=== PATIENT | male | born 1970 | race Caucasian/White ===

== ENCOUNTER 2016-09-10 23:45 | Emergency (ER) | payer OTHER ==
[~2016-09-10] VITALS: Ht 182.9 cm; Wt 122.5 kg
[~2016-09-10 23:45] MED LIST: PENICILLIN-VK500 MG PO; PERCOCET 325 MG1 TA2 PO; TRAMADOL50 MG PO
[2016-09-11] MEDS ORDERED: VENTOLIN HFA18 GM INH (00:03)
[2016-09-11 00:26] LABS: HEMATOCRIT 36.1 % (42-52); MEAN CORPUSCULAR HGB 29.9 PG (27.0-31.0); MEAN CORPUSCULAR HGB CONC 35.4 G/DL (33.0-37.0); MEAN CORPUSCULAR VOLUME 84.7 FL (80.0-94.0); MEAN PLATELET VOLUME 9.8 FL (7.4-10.4); PLATELET COUNT 212 /CUMM (130-400); RBC DISTRIBUTION WIDTH 13.6 % (11.5-14.5); RED BLOOD CELL CT 4.26 /CUMM (4.70-6.10)
--- NOTE | 2016-09-11 00:57 | RADIOLOGY REPORT ---
EXAMINATION: XR PORTABLE CHEST CLINICAL INFORMATION: Chest pain COMPARISON: None TECHNIQUE: Portable frontal view of the chest was obtained. FINDINGS: The lungs are hypoinflated and suboptimally evaluated. No definite consolidation is seen. No evidence of pneumothorax or significant pleural effusion. The cardiomediastinal silhouette is prominent though likely accentuated by low lung volumes. No acute osseous findings are seen. IMPRESSION: Low lung volumes without definite acute findings.
--- NOTE | 2016-09-11 02:15 | ED INFLUENZA/URI COMPLAINT ---
See Addendum History of Present Illness General Chief Complaint: Chest Pain Stated Complaint: "PER PT BADY PAIN, SOB, CP, DIZZY" Source: patient, family, old records Exam Limitations: no limitations Vital Signs & Intake/Output Vital Signs & Intake/Output Vital Signs Date Time Temp Pulse Resp B/P B/P Pulse O2 O2 Flow FiO2 Mean Ox Delivery Rate 09/11 0354 98.6 100 20 106/62 96 Room Air 09/11 0226 97.6 110 18 108/52 96 Room Air 09/11 0131 101.2 09/11 0127 101.2 113 19 119/63 95 Room Air 09/11 0003 95 Room Air 09/10 2359 101.8 115 19 133/91 94 Room Air Room Air ED Intake and Output 09/11 0000 09/10 1200 Intake Total Output Total Balance Patient 270 lb Weight Allergies Coded Allergies: NO KNOWN ALLERGIES (11/18/10) Reconcile Medications Albuterol Sulfate (Ventolin Hfa) 90 MCG HFA.AER.AD 2 PUF INH Q4-6 PRN PRN ALLERGIC WHEEZING (Reported) Amoxicillin/Potassium Clav (Augmentin 875-125 Tablet) 875 MG-125 MG TABLET 1 TAB PO BID bronchitis OXYCODONE HCL/ACETAMINOPHEN (Percocet 5-325 MG Tablet) 325 MG/5 MG TAB 1-2 TAB PO Q4-6 PRN PRN SEVERE PAIN Oxycodone HCl/Acetaminophen (Percocet 5-325 MG Tablet) 5 MG-325 MG TABLET 1 TAB PO 4 TIMES/DAY PRN severe pain Penicillin V Potassium (Penicillin-Vk) 500 MG TAB 1 PO DENTAL ABCESS ( Reported) Prednisone 20 MG TABLET 1 TAB PO BID asthma TRAMADOL HCL (Tramadol) 50 MG TABLET 1-2 TAB PO Q6P PRN MODERATE PAIN Triage Note: 46yo MALE TORM 4 W/CO DIFF BREATHING, BODY ACHES, CP ALL DAY TODAY. Triage Nurses Notes Reviewed? yes Onset: Evening Duration: hour(s):, constant, continues in ED Timing: recent history Severity: severe Prior Episodes/Possible Cause: illness exposure No Modifying Factors: none Associated Symptoms: cough, muscle aches, shortness of breath, wheezing HPI: 1 day prior to admission patient felt weak. 12 hours prior to admission complained of nonproductive cough shortness of breath with wheezing chest tightness body aches and chills. He took Motrin. He denies nausea vomiting diarrhea abdominal pain dysuria rash bleeding headache. Past History Travel History Traveled to [place] past 21 day No Medical History Any Pertinent Medical History? see below for history Respiratory: asthma Surgical History Surgical History: non-contributory Psychosocial History What is your primary language [place] Tobacco Use: Never used Family History Hx Contributory? No Review of Systems Review of Systems Constitutional: Reports: see HPI, chills, malaise. EENTM: Reports: no symptoms. Respiratory: Reports: see HPI, cough, short of breath, wheezing. Cardiovascular: Reports: see HPI, chest pain. GI: Reports: no symptoms. Genitourinary: Reports: no symptoms. Musculoskeletal: Reports: see HPI, joint pain, muscle pain. Skin: Reports: no symptoms. Neurological/Psychological: Reports: no symptoms. Hematologic/Endocrine: Reports: no symptoms. Immunologic/Allergic: Reports: no symptoms. All Other Systems: Reviewed and Negative Physical Exam Physical Exam General Appearance: well developed/nourished, alert, awake, anxious, moderate distress, obese Head: atraumatic, normal appearance Eyes: Bilateral: normal appearance, PERRL, EOMI. Ears, Nose, Throat: normal ENT inspection, moist mucous membrane Neck: normal inspection, supple, full range of motion, trachea midline, no midline tenderness Respiratory: chest non-tender, decreased breath sounds, wheezing, respiratory distress Cardiovascular: regular rate/rhythm, normal peripheral pulses, tachycardia, norml femoral pulses equa Peripheral Pulses: 4+ carotid (R), 4+ carotid (L) Gastrointestinal: normal bowel sounds, soft, non-tender, no organomegaly Back: normal inspection, normal range of motion Extremities: normal inspection, normal capillary refill, normal range of motion, no edema Neurologic/Psych: no motor/sensory deficits, awake, alert, oriented x 3, normal gait, normal mood/affect, 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 Skin: intact, normal color, warm/dry Lymphatic: no anterior cervical kanu Core Measures Severe Sepsis Present: No Septic Shock Present: No Progress Differential Diagnosis: influenza, pneumonia, pharyngitis, sinusitis Plan of Care: Orders Procedure Date/time Status Add-on Test (ER Only) 09/12 227 Active RAPID VIRAL INFLUENZA A 06/18 0129 Complete URINALYSIS 06/18 0129 Complete LACTIC ACID 09/12 7 Complete BLOOD CULTURE 09/11 6 Active TROPONIN LEVEL 09/11 6 Complete COMPREHENSIVE METABOLIC PANEL 09/11 6 Complete CBC WITHOUT DIFFERENTIAL 09/11 6 Complete B-TYPE NATRIURETIC PEP (BNP) 09/11 6 Complete EKG 09/10 2347 Active Current Medications Sig/Jaden Start time Last Medication Dose Stop Time Status Admin Ampicillin Sodium/ 3,000 MG ONCE ONE 09/11 329 UNVr 09/11 Sulbactam Sodium 09/11 358 0330 (Unasyn) Sodium Chloride 100 ML (Normal Saline 0.9%) Sodium Chloride 1,000 ML BOLUS ONE 09/11 030 UNVr 09/11 (Normal Saline 0.9%) 09/11 035 0317 Laboratory Tests 09/11/16 015: Urine Color YEL, Urine Clarity CLEAR, Urine pH 6.0, Ur Specific [place] 1.025, Urine Protein NEG, Urine Ketones NEG, Urine Nitrite NEG, Urine Bilirubin NEG, Urine Urobilinogen 0.2, Ur Leukocyte Esterase NEG, Ur Microscopic EXAM NOT REQUIRED, Urine Hemoglobin NEG, Urine Glucose NEG 09/11/16 0008: Anion Gap 11, Estimated GFR > 60, BUN/Creatinine Ratio 17.3, Glucose 142 H, Lactic Acid 2.0, Calcium 9.1, Total Bilirubin 0.4, AST 24, ALT 35, Alkaline Phosphatase 60, Troponin I < 0.01, Hfz-[id number]-Kmcuiowumxk Pept 87.3, Total Protein 6.7, Albumin 4.2, Globulin 2.5, Albumin/Globulin Ratio 1.7, CBC w Diff MAN DIFF ORDERED, RBC 4.26 L, MCV 84.7, MCH 29.9, RDW 13.6, MPV 9.8, Segmented Neutrophils 75, Lymphocytes 23, Monocytes 2, Platelet Estimate ADEQUATE, Normochromic RBCs VERIFIED, Anisocytosis 1+, PUBS MCHC 35.4 Microbiology 09/11 0155 NASOPHARYN: Influenza Virus A & B Rapid Smear - COMP 09/11 002 BLOOD: Blood Culture - RECD 09/12 7 BLOOD: Blood Culture - RECD Diagnostic Imaging: Viewed by Me: Radiology Read. Discussed w/RAD: Radiology Read. CXR Impression: no acute abnormality, no infiltrates Initial ED EKG: normal axis, normal intervals, normal p-waves, normal QRS complex, rate (sinus tachycardia), no ST T wave changes Rhythm Strip: sinus tachycardia Departure Departure Time of Disposition: [id number] Disposition: HOME OR SELF CARE Condition: Stable Clinical Impression Primary Impression: Asthmatic bronchitis Qualifiers: Asthma severity: unspecified severity Asthma complication type: with acute exacerbation Qualified Code: J45.901 - Unspecified asthma with (acute ) exacerbation Secondary Impressions: Fever and chills Referrals: TOMMY LUCAS APRN (PCP/Family) Departure Forms: Customer Survey General Discharge Information Prescriptions: Current Visit Scripts Amoxicillin/Potassium Clav (Augmentin 875-125 Tablet) 1 TAB PO BID #20 TAB Prednisone 1 TAB PO BID #10 TAB Oxycodone HCl/Acetaminophen (Percocet 5-325 MG Tablet) 1 TAB PO 4 TIMES/DAY PRN severe pain #20 TAB
[2016-09-11 03:54] VITALS: BP 106/62
[2016-09-11] MEDS ORDERED: PERCOCET 5-3251 EACH PO (04:29)
[2016-09-11] MEDS ORDERED: PREDNISONE20 M1 PO (04:29)
[2016-09-11] MEDS ORDERED: AUGMENTIN 875-1 EACH PO (04:29)
== END 2016-09-11 04:49 ==
LOC: ERH 23:45
PROVIDERS: Emergency Medicine
DX: J45.909 Unspecified asthma, uncomplicated (principal); R50.9 Fever, unspecified; R07.89 Other chest pain
CPT/HCPCS: 1263; 81003; 87040; 87804; 87804-59; 93005; 93010; 96374; 96375; J0131; J0696; J1885

== ENCOUNTER 2016-09-11 16:59 | Inpatient (IN) | payer OTHER ==
[~2016-09-11] VITALS: Ht 182.9 cm; Wt 120.2 kg
[~2016-09-11 16:59] MED LIST changes: +AUGMENTIN 875-1 EACH PO; +PERCOCET 5-3251 EACH PO; +PREDNISONE20 M1 PO; +VENTOLIN HFA18 GM INH
--- NOTE | 2016-09-11 17:08 | NUR ---
PT CALLED BACK TO ED BY DR. LOPEZ FOR POSITIVE BLOOD CULTURES. SEEN HERE LAST NIGHT FOR DIFF BREATHING, SUBJECTIVE FEVERS AT HOME. CHEST PAIN THAT WORSENS WHEN COUGHING. PT PALE, AFEBRILE. NON-PRODUCTIVE COUGH.
--- NOTE | 2016-09-11 18:04 | NUR ---
RECIEVED TO ROOM 8. PT WITH LABORED RESPIRATIONS BUT SATS 98% ON ROOM AIR. PT COMPLAINING OF GENERALIZED PAIN THROUGHT CHEST AND BACK THAT MAKES IT HARD TO TAKE A DEEP BREATH. STATES WE PRESCRIBED PERCOCET AT HOME FOR HIM AND HE WANTS TO KNOW IF HE CAN HAVE A DOSE NOW.
--- NOTE | 2016-09-11 18:05 | NUR ---
PT STATES LABS AMD BLOOD CULTURES WERE DONE IN TRIAGE
--- NOTE | 2016-09-11 18:16 | NUR ---
DR LOPEZ IN TO SEE PT
--- NOTE | 2016-09-11 18:26 | ED GENERAL ADULT ---
History of Present Illness General Chief Complaint: General Adult Stated Complaint: PT WAS CALLED BY DR LOPEZ TO COME BACK IN Source: patient, old records Exam Limitations: no limitations Vital Signs & Intake/Output Vital Signs & Intake/Output Vital Signs Date Time Temp Pulse Resp B/P B/P Pulse O2 O2 Flow FiO2 Mean Ox Delivery Rate 09/11 1818 Room Air 09/11 1704 98.2 104 20 137/83 97 Room Air Room Air Allergies Coded Allergies: NO KNOWN ALLERGIES (11/18/10) Reconcile Medications Albuterol Sulfate (Ventolin Hfa) 90 MCG HFA.AER.AD 2 PUF INH Q4-6 PRN PRN ALLERGIC WHEEZING (Reported) Amoxicillin/Potassium Clav (Augmentin 875-125 Tablet) 875 MG-125 MG TABLET 1 TAB PO BID bronchitis Oxycodone HCl/Acetaminophen (Percocet 5-325 MG Tablet) 5 MG-325 MG TABLET 1 TAB PO 4 TIMES/DAY PRN severe pain Prednisone 20 MG TABLET 1 TAB PO BID asthma Triage Note: PT CALLED BACK TO ED BY DR. LOPEZ FOR POSITIVE BLOOD CULTURES. SEEN HERE LAST NIGHT FOR DIFF BREATHING, SUBJECTIVE FEVERS AT HOME. CHEST PAIN THAT WORSENS WHEN COUGHING. PT PALE, AFEBRILE. NON-PRODUCTIVE COUGH. Triage Nurses Notes Reviewed? yes HPI: Patient presents for evaluation due to positive blood cultures. Patient was evaluated late last night and was diagnosed with bronchitis and prescribed an antibiotic and inhalers and prednisone. He still feels ill with shortness of breath, chest tightness and now left-sided abdominal pain. He denies fevers currently but is taking Percocet and ibuprofen. He does experience chills and cold sweats along with trouble sleeping. Because of his dyspnea he's been using an inhaler very frequently. He is also experiencing a back pain and chest pain with deep inspiration and certain movements. The left-sided abdominal pain, described as sharp, also worsens with deep inspiration and certain movements. The patient denies rashes dysuria vomiting or diarrhea. Past History Travel History Traveled to [place] past 21 day No Medical History Any Pertinent Medical History? 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 No Review of Systems Review of Systems Constitutional: Reports: chills. EENTM: Reports: no symptoms. Respiratory: Reports: see HPI. Cardiovascular: Reports: no symptoms. GI: Reports: no symptoms. Genitourinary: Reports: no symptoms. Musculoskeletal: Reports: see HPI. Skin: Reports: no symptoms. Neurological/Psychological: Reports: no symptoms. Hematologic/Endocrine: Reports: no symptoms. Immunologic/Allergic: Reports: no symptoms. All Other Systems: Reviewed and Negative Physical Exam Physical Exam General Appearance: see below Comments: Gen.: Well-nourished, well-developed, no acute respiratory distress. Appears somewhat ill but nontoxic. Head: Normocephalic, atraumatic. Eyes: Normal inspection bilaterally Ears: Normal inspection bilaterally Nose: Normal inspection Throat/mouth : Moist mucosa Neck: Supple, full range of motion, no goiter Heart: Regular rate and rhythm, no murmurs rubs or gallops Lungs: Diminished air entry over the left anterior chest with a faint end expiratory wheeze and cough with deep inspiration ( I suspect bronchospastic cough). Chest: Nontender Back: Normal range of motion Abdomen: Soft, nontender, nondistended, normal bowel sounds Extremities: Normal range of motion grossly, equal radial pulses, no cyanosis clubbing or edema Neurologic: Cranial nerves grossly intact, speech is clear Skin: warm and dry Psychiatric: Calm, cooperative, no apparent delusions or hallucinations Progress Differential Diagnoses I considered the following diagnoses in my evaluation of the patient: Pneumonia, bacteremia, sepsis Plan of Care: Orders Procedure Date/time Status XRY-CHEST XRAY, PA AND LATERAL 09/11 182 Active BLOOD CULTURE 09/11 1718 Active COMPREHENSIVE METABOLIC PANEL 09/11 1718 Active CBC WITHOUT DIFFERENTIAL 09/11 1718 Active EKG 09/11 1718 Active Current Medications Sig/Jaden Start time Last Medication Dose Stop Time Status Admin Azithromycin 500 MG ONCE ONE 09/11 1830 UNVr (Zithromax) 09/11 192 Sodium Chloride 250 ML (Normal Saline 0.9%) Ceftriaxone Sodium 1,000 MG ONCE ONE 09/11 183 UNVr (Rocephin) 09/11 183 Laboratory Tests 09/11/16 1743: Sodium Pending, Potassium Pending, Chloride Pending, Carbon Dioxide Pending, Anion Gap Pending, BUN Pending, Creatinine Pending, BUN/Creatinine Ratio Pending , Glucose Pending, Calcium Pending, Total Bilirubin Pending, AST Pending, ALT Pending, Alkaline Phosphatase Pending, Total Protein Pending, Albumin Pending, Globulin Pending, Albumin/Globulin Ratio Pending, CBC w Diff Pending, WBC Pending, RBC Pending, Hgb Pending, Hct Pending, MCV Pending, MCH Pending, RDW Pending, Plt Count Pending, MPV Pending, PUBS MCHC Pending Microbiology 09/11 1743 BLOOD: Blood Culture - RECD 09/11 1730 BLOOD: Blood Culture - RECD Initial ED EKG: NSR, rate (96) Prior EKG: changed (SINUS TACHY ON PRIOR) Departure Departure Condition: Stable Referrals: TOMMY LUCAS APRN (PCP/Family) Departure Forms: Customer Survey General Discharge Information
[2016-09-11 18:29] LABS: ABSOLUTE BASOPHIL COUNT 0.1 /CUMM (0.0-0.2); ABSOLUTE EOSINOPHIL COUNT 0 /CUMM (0.0-0.7); ABSOLUTE GRANULOCYTE CT 12.6 /CUMM (1.4-6.5); ABSOLUTE LYMPH COUNT 1.7 /CUMM (1.2-3.4); ABSOLUTE MONOCYTE COUNT 0.6 /CUMM (0.10-0.60); BASOPHIL % 0.5 % (0.0-2.0); EOSINOPHIL % 0.1 % (0-5); GRANULOCYTE % 84.1 % (42.2-75.2); HEMATOCRIT 36.2 % (42-52); MEAN CORPUSCULAR HGB 29.3 PG (27.0-31.0); MEAN PLATELET VOLUME 10.2 FL (7.4-10.4); PLATELET COUNT 190 /CUMM (130-400); RBC DISTRIBUTION WIDTH 13.8 % (11.5-14.5); RED BLOOD CELL CT 4.21 /CUMM (4.70-6.10)
--- NOTE | 2016-09-11 18:48 | NUR ---
IV STARTED. IVF STARTED AT 150/HR. PT REFUSING TORADOL FOR PAIN. STATES HE GOT TORADOL LAST NIGHT AND IT GAVE HIM A BAD HEADACHE. PT WANTS PERCOCET.
--- NOTE | 2016-09-11 18:48 | NUR ---
TAKEN TO XRAY
--- NOTE | 2016-09-11 19:09 | RADIOLOGY REPORT ---
EXAMINATION: XR CHEST CLINICAL INFORMATION: Cough and chills with decreased air entry on the left side. COMPARISON: Chest performed earlier today at 0054 hours. TECHNIQUE: 2 views of the chest were obtained. FINDINGS: Both lungs are well-expanded clear of acute pneumonic process. The heart size and pulmonary vascularity is normal. No gross bony abnormality seen. IMPRESSION: Unremarkable chest exam. No major change from earlier study 09/11/2016.
--- NOTE | 2016-09-11 20:41 | NUR ---
HOUSE STAFF IN TO SEE PT
--- NOTE | 2016-09-11 21:25 | NUR ---
PT SITTING ON EDGE OF STRETCHER, EATING BOX LUNCH
--- NOTE | 2016-09-11 21:36 | History & Physical ---
RUTHANN GOOD,[facility] [place] 09/11/16 2135: General Information and HPI MD Statement: I have seen and personally examined BRAYDEN EDWARD SR and documented this H&P. The patient is a 46 year old M who presented with a patient stated chief complaint of shortness of breath. Source of Information: patient, family, old records Exam Limitations: no limitations History of Present Illness: Mr. Edward is a 46 y/o morbidly obese M with PMHx of asthma, SUGAR not on CPAP and multifocal pneumonia 10 years ago who presents with shortness of breath x1 day. Patient was in his usual state of health up until yesterday evening when he acutely developed difficulty breathing at a Father's day picnic that he was attending. He reports that he feels like his "lungs are being squashed" and that he "cannot get air" into his lungs. He endorses associated chills, malaise and myalgias and complains of pain in his chest, back, ribcage and shoulder, exacerbated by deep inspiration and coughing. Pain is 8 out of 10 at its worst. He has been taking Percocet and Motrin with some relief. He has been having a dry cough but reports that the cough occurs only when he is gasping for air. He denies sick contacts. Patient presented to the ED yesterday with the symptoms when he was found to be afebrile to 101.8. CBC revealed leukocytosis with WBC count of 16. CXR showed no focal consolidation suggestive of pneumonia and patient's symptoms were attributed to asthmatic bronchitis. He received 1 dose of Unasyn in the ED and was subsequently discharged home on 10-days of Augmentin, 5-day course of prednisone 20 mg BID and Percocet. Blood cultures were drawn at that time which later grew gram positive cocci in pairs and chains in two out of two sets and patient was called by ED physician Dr. Abe Cuadra to return to the ED. Of note patient has had multiple episodes of pneumonia in the past including an episode of multifocal pneumonia 10 years prior to current presentation. He has never smoked but does have passive smoking exposure as he lives with smokers. 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 Allergies/Medications Allergies: Coded Allergies: NO KNOWN ALLERGIES (11/18/10) Home Med list Albuterol Sulfate (Ventolin Hfa) 90 MCG HFA.AER.AD 2 PUF INH Q4-6 PRN PRN ALLERGIC WHEEZING (Reported) Amoxicillin/Potassium Clav (Augmentin 875-125 Tablet) 875 MG-125 MG TABLET 1 TAB PO BID bronchitis Oxycodone HCl/Acetaminophen (Percocet 5-325 MG Tablet) 5 MG-325 MG TABLET 1 TAB PO 4 TIMES/DAY PRN severe pain Prednisone 20 MG TABLET 1 TAB PO BID asthma Past History Travel History Traveled to [place] past 21 day No Medical History Neurological: NONE EENT: NONE Cardiovascular: NONE Respiratory: asthma, obstructive sleep apnea, pneumonia Gastrointestinal: GERD Hepatic: NONE Renal: NONE Musculoskeletal: ruptured biceps tendon, left ACL tear Psychiatric: NONE Endocrine: NONE Blood Disorders: NONE Cancer(s): NONE SUIT MAKER/Reproductive: NONE Surgical History Surgical History: repair of ruptured biceps tendon Past Family/Social History Family History Relations & Conditions if any MOTHER FH: diabetes mellitus FH: heart attack FH: skin cancer FATHER FH: colon cancer, Onset: 60+. FH: skin cancer Psychosocial History Where do you live? Home Who Do You Live With? spouse Services at Home: None Primary Language: Greek Smoking Status: Never Smoked ETOH Use: occasional use Illicit Drug Use: denies illicit drug use Functional Ability ADLs Independent: dressing, eating, toileting, bathing. Ambulation: independent IADLs Independent: shopping, housework, finances, food prep, telephone, transportation , medication admin. 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 EENTM: Reports: no symptoms. Cardiovascular: Reports: chest pain. Denies: palpitations. Respiratory: Reports: cough, short of breath. Denies: sputum production. GI: Reports: no symptoms. Denies: nausea, vomiting. Genitourinary: Reports: no symptoms. Musculoskeletal: Reports: back pain, joint pain, muscle pain. Skin: Reports: no symptoms. Neurological/Psychological: Reports: no symptoms. Hematologic/Endocrine: Reports: no symptoms. Immunologic/Allergic: Reports: no symptoms. All Other Systems: Reviewed and Negative Exam & Diagnostic Data Last 24 Hrs of Vital Signs/I&O Vital Signs Date Time Temp Pulse Resp B/P B/P Pulse O2 O2 Flow FiO2 Mean Ox Delivery Rate 09/11 2303 96.9 95 20 134/80 97 Room Air 09/11 2133 97.3 91 20 149/67 99 Room Air 09/11 1832 96 09/11 1818 Room Air 09/11 1704 98.2 104 20 137/83 97 Room Air Room Air Physical Exam General Appearance Alert, Oriented X3, No Acute Distress, Obese Skin No Rashes Skin Temp/Moisture Exam: Warm/Dry HEENT Atraumatic, Dry Mucous Membranes Neck Supple Cardiovascular Regular Rate, Normal S1, Normal S2, No Murmurs, Gallops, Rubs Lungs Clear to Auscultation, Diminished Breath Sounds Abdomen Soft, No Tenderness, Positive Bowel Sounds Extremities No Clubbing, No Cyanosis, No Edema Last 24 Hrs of Labs/Pelon: Laboratory Tests 09/11/16 1743: Anion Gap 12, Estimated GFR > 60, BUN/Creatinine Ratio 14.4, Glucose 213 H, Hemoglobin A1c Pending, Calcium 9.7, Total Bilirubin 0.5, AST 14 L, ALT 38, Alkaline Phosphatase 70, Troponin I < 0.01, Total Protein 6.5, Albumin 3.9, Globulin 2.6, Albumin/Globulin Ratio 1.5, CBC w Diff MAN DIFF ORDERED, RBC 4.21 L, MCV 86.0, MCH 29.3, RDW 13.8, MPV 10.2, Gran % 84.1 H, Lymphocytes % 11.5 L , Monocytes % 3.8, Eosinophils % 0.1, Basophils % 0.5, Absolute Granulocytes 12.6 H, Segmented Neutrophils 80 H, Band Neutrophils 4, Absolute Lymphocytes 1.7, Lymphocytes 13 L, Monocytes 2, Absolute Monocytes 0.6, Absolute Eosinophils 0, Basophils 1, Absolute Basophils 0.1, Platelet Estimate ADEQUATE, Polychromasia 1+, Hypochromic-Microcytic 1+, Basophilic Stippling 1+, Anisocytosis 1+, PUBS MCHC 34.0 Microbiology Blood cultures (09/11): Gram positive cocci in pairs and chains x2 Diagnostic Data EKG Results Normal sinus rhythm HR 96 QTc 460 CXR Results Unremarkable chest exam. No major change from earlier study 09/11/2016. Other Results CT CHEST WITH IV CONTRAST: 1. Mild region of groundglass opacity adjacent to left major fissural fluid; this may reflect mild infectious/inflammatory change. Mild endobronchial opacity is noted in the nearby lingula, suspicious for airway impaction. CT follow-up in approximately 3 months would be helpful to assess for resolution. 2. Left lower lobe 5 mm lung nodule, nonspecific. If the patient is at high risk for malignancy, [address] is recommended. 3. Borderline enlarged subcarinal lymph node along with suggestion of left hilar lymphadenopathy; this may be reactive in nature. Assessment/Plan Assessment: Mr. Edward is a 46 y/o morbidly obese M with PMHx of asthma, SUGAR not on CPAP and multifocal pneumonia 10 years ago who is admitted for gram positive bacteremia. #Gram positive bacteremia likely sepsis 2/2 CAP: Blood cultures from yesterday growing gram positive cocci in pairs and chains, likely Streptococcus. Most likely source is pneumonia given shortness of breath, cough and pleuritic chest pain. Although CXR on admission was negative, CT Chest with IV Contrast reveals mild region of groundglass opacity in the left lower lobe and lingula which may represent pneumonia. Seen in the ED yesterday and discharged on Augmentin and prednisone for suspected bronchitis. Meets SIRS criteria for sepsis with fever ( though currently afebrile, febrile to Tmax 101.8 in the ED yesterday), leukocytosis (WBC count of 15 and 4% bands) and tachycardia. Hemodynamically stable and satting well on room air. S/p 1 dose of IV ceftriaxone and azithromycin in the ED. * Admit to General Medicine. * Consider ID consult in the AM. * TRC and nebs. * Gentle hydration with NS @ 75 cc/hr. * Continue ceftriaxone 1 g IV daily and azithromycin 500 mg IV daily. * Check Lyme titers given associated arthralgias and myalgias. * Check sputum culture and repeat blood cultures. * Check Legionella and Strep pneumo urinary antigen. * Check urinalysis and urine toxicology. * No need for steroids as patient does not appear to be in asthma exacerbation. #Hyperglycemia: Blood sugar elevated to 213 on admission. Likely secondary to steroids. No history of diabetes. * Check HbA1c. Diet: Regular Pain: Tylenol 650 mg PO Q6H PRN for mild pain (scale 1-3) Motrin 600 mg PO Q6H PRN for moderate pain (scale 4-6) Morphine 2 mg IV Q6H PRN for severe pain (scale 7-10) DVT PPx: Lovenox and ALPs CODE: FULL As Ranked By This Provider Problem List: 1. Gram-positive bacteremia 2. CAP (community acquired pneumonia) 3. Hyperglycemia 4. Sepsis Core Measures/Miscellaneous Acute Coronary Syndrome ACS Diagnosis: No Cerebrovascular Accident CVA/TIA Diagnosis: No Congestive Heart Failure CHF Diagnosis: No VTE (View Protocol) VTE Risk Factors: Acute medical illness, Age > 40, Obesity No Mech VTE prophylaxis d/t: No contraindications No VTE Pharm Prophylaxis d/t: No contraindications VTE Diagnosis: No VTE Type: NONE VTE Confirmed by (Test): NONE Sepsis (View Protocol) Severe Sepsis Present: No Septic Shock Septic Shock Present: No Miscellaneous Documentation Attending Case Discussed With: IGGY BAEZ MD Primary Care Physician: TOMMY LUCAS APRN Patient sees these Specialists None Level of Patient Care: General Medicine SHELBIE FERNANDEZ 09/11/16 2141: Resident Review Statement Resident Statement: examined this patient, discussed with recording studio intern, agreed with recording studio intern, reviewed images, amended to note Other Findings: This is a 46 years old with history of recurrent pneumonia with the last episode about 10 years ago without any chronic condition and did not on any medications who presented with one-day history of fever chills, chest pain and shortness of breath. Patient reports that the symptoms started yesterday around 5 PM when he started feeling tired and having chills he ended up coming to the [facility] and was discharged home on antibiotic and steroid. He continued having a sense of not getting enough air and also experiencing chest wall pain especially on deep breathing when he tries to breathe he gets a cough which is dry not producing any phlegm and this has been better bothersome. In the same duration he has been experiencing joint and muscle pains. The patient reported fever as high as 101.8, denies any sick contact he has no sore throat, denies any urinary symptoms. 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 He denies any palpitation dizziness or lightheadedness, he has no nausea or vomiting. Vital signs on arrival temperature 98.2 heart rate of 104 respiration of 20 blood pressure 137/83 saturating 97% on room air Physical examination: Patient seated on the bed in mild distress on and off bouts of coughing holding the chest you to pain related and oriented to time place and person and responding appropriately to questions. HEENT: Wet mucous membrane, clear throat no evidence of inflammation, no distended neck rest Chest: Decreased breath sounds especially on the lung bases no appreciable crackles Heart: RRR, normal S1-S2 no murmurs Abdomen: Normal contour movements no palpable mass Extremities: No cyanosis edema or clubbing Labs: Leukocytosis 15,000 with left shift granulocyte 84.1% and 81 bands, her random glucose of 213 Blood culture positive for gram-positive cocci in pairs and chains from 2 bottles Imaging CXR unremarkable/CT chest Mild region of groundglass opacity adjacent to left major fissural fluid; this may reflect mild infectious/inflammatory change. Mild endobronchial opacity is noted in the nearby lingula, suspicious for airway impaction. Assessment and plan 46 years old gentleman with past history of multiple pneumonic episodes presenting with one-day history of fever chills myalgia shortness of breath pleurisy and dry cough found to have leukocytosis with left shift and bandemia with CT scan evidence of an infectious process. This patient might be having pneumonia in in its early stages which has developed into bacteremia. It is not common to have pneumonia in people of his age but given his exposure to occupational dusts and passive smokes might have underlying structural damage which predisposes to pneumonic attack. Bacteremia Community-acquired pneumonia Admitted the patient to general medicine floor Vital signs every shift, TRC nebulization Continue IV ceftriaxone 1000 mg daily and azithromycin 500 mg daily Adequate pain control with Tylenol, ibuprofen and morphine Blood culture growing gram-positive cocci in pairs and chains continue to follow sensitivity in detail antibiotic accordingly Check UA and U tox Patient benefits from ID review Patient is full code Lovenox for DVT prophylaxis SASHA GOOD, [facility] 09/12/16 0008: Attending MD Review Statement Attending Statement Attending MD Statement: examined this patient, discuss w/resident/PA/UNDERWEAR HEMMER, agreed w/resident/PA/UNDERWEAR HEMMER, discussed with family Attending Assessment/Plan: 46 yo morbidly obese M with h/o asthma, dyspepsia, SUGAR, previous multifocal pneumonia with recurrence (10 yrs ago), was seen in ER late last night for c/o malaise, myalgias, chills, exertional dyspnea and pleuritic left sided chest discomfort that started while he was at a Father's day picnic. He kept clearing his throat ?postnasal drip, but denies cough or phlegm. Workup for negative for pneumonia or flu, he received IV Unasyn, and was discharged on Augmentin and prednisone for asthmatic bronchitis. He was recalled this evening for positive blood cultures both sets growing gram positive cocci in pairs and chains. He reports no significant improvement in his symptoms. Tmax of 101.8 while in the ER previous night. He denies GI or symptoms. Non smoker, but is exposed to second hand smoke. He is not sure if he sustained a tick bite, denies being out in the [place]. No sick contacts. VSS. Exam: AAO, in mild distress, ill appearing, dry mucous membranes, Chest reduced air entry, but no wheezes or rhonchi. No obvious skin rash. Labs: WBC 15 , H/H 12.3/36.2, Plt 190, glucose 213, LFTs normal, trop neg. EKG: SR. CXR: neg. Blood culture 2 sets (09/11) gram-positive cocci in pairs and chains. CT chest: groundglass opacity adjacent to left major fissural fluid with mild endobronchial opacity in the nearby lingula, suspicious for airway impaction. LLL 5 mm lung nodule. Enlarged subcarinal LN and left hilar LN. 1. Gram positive cocci bacteremia in this patient with Sepsis 2/2 developing community acquired pneumonia. GM admit, panculture, TRC nebs, check urine legionella and strep pneumo Ag, IV ceftriaxone and azithro, no need for steroids at this point as patient does not seem to be in asthma exacerbation, pain control. Check UA and Urine tox. Check lyme titers. Consider ID consult in AM. DVT ppx Lovenox. Full code.
--- NOTE | 2016-09-11 23:04 | NUR ---
PT STATES GOOD RELIEF OF PAIN AFTE PERCOCOET BUT PAIN RETURNING. PT MEDICATED WITH MORPHINE AND NOTIFIED OF PLAN FOR CT OF CHEST
--- NOTE | 2016-09-11 23:52 | NUR ---
ASSUMED CARE OF PT PER ASIM.
--- NOTE | 2016-09-11 23:56 | CT SCAN REPORT ---
EXAMINATION: CT CHEST WITH CONTRAST CLINICAL INFORMATION: Shortness of breath, pneumonia COMPARISON: 09/11/2016 TECHNIQUE: Multidetector volumetric CT imaging of the chest was obtained after the administration of 50 mL of Optiray 320 intravenous contrast without immediate adverse reactions. Axial MIP volume rendering provided. Sagittal and coronal reformatted images were obtained. DLP: 689.53 mGy-cm FINDINGS: LUNGS: There is a mild region of groundglass opacity in the left lower lobe and lingula adjacent to fluid within the left major fissure (image 227/504). Mild endobronchial opacity is noted in the lingula and near this region (image 209/504). No consolidation is identified in the right lung. There is a 5 mm left lower lobe nodule on image 286/504 posteriorly. MEDIASTINUM: The visualized thyroid gland is unremarkable. There is suggestion of left hilar lymphadenopathy. There is a borderline enlarged subcarinal lymph node. Additional subcentimeter lymph nodes are scattered throughout the mediastinum. Cardiac size is within normal limits; no significant pericardial effusion. The aorta is unremarkable. PLEURA: Trace fluid is noted along the lower aspect of the left major fissure. No dependent pleural effusions. No pneumothorax. AXILLA: No lymphadenopathy. UPPER ABDOMEN: Unremarkable. OSSEOUS STRUCTURES: Scattered degenerative endplate changes are present in the spine, most prominently in the lower thoracic spine. IMPRESSION: 1. Mild region of groundglass opacity adjacent to left major fissural fluid; this may reflect mild infectious/inflammatory change. Mild endobronchial opacity is noted in the nearby lingula, suspicious for airway impaction. CT follow-up in approximately 3 months would be helpful to assess for resolution. 2. Left lower lobe 5 mm lung nodule, nonspecific. If the patient is at high risk for malignancy, [address] is recommended. 3. Borderline enlarged subcarinal lymph node along with suggestion of left hilar lymphadenopathy; this may be reactive in nature.
--- NOTE | 2016-09-12 00:04 | NUR ---
PT'S RM ASSIGNMENT 220 BED 2
--- NOTE | 2016-09-12 00:09 | Admission Certification ---
Admission Certification Certification Statement - As attending physician, I certify that at the time of - admission, based on clinical presentation, severity of - symptoms, need for further diagnostic testing and - therapeutic interventions, and risk of adverse outcomes - without in-hospital treatment, in my clinical assessment, - this patient requires an acute hospital stay for a minimum - of two nights or longer. I have also considered psychsocial - factors such as support system, advanced age, financial - issues, cognitive issues, and failed out-patient treatments, - past re-admission history, safety of patient, and lack of - compliance as applicable. Specific rationale supporting this admission is: Gram positive cocci bacteremia.
--- NOTE | 2016-09-12 00:10 | NUR ---
REPORT GIVEN TO INA MURILLO
[2016-09-12 00:28] VITALS: BP 148/80
[2016-09-12 06:30] VITALS: BP 148/90
--- NOTE | 2016-09-12 07:37 | PN- Housestaff ---
See Addendum Subjective Follow-up For: Community acquired pneumonia Gram positive cocci bacteremia Subjective: I saw and examined the patient today morning He still reports dry cough, pain with breathing and cough. Not feeling any better since admission in terms of pain and cough. He remianed afebrile, stable on room air. Review of Systems Constitutional: Reports: see HPI. Comments: ROS negative except the above Objective Last 24 Hrs of Vital Signs/I&O Vital Signs Date Time Temp Pulse Resp B/P B/P Pulse O2 O2 Flow FiO2 Mean Ox Delivery Rate 09/12 0630 98.5 91 20 148/90 97 Room Air 09/12 0028 98.7 88 20 148/80 98 Room Air 09/11 2303 96.9 95 20 134/80 97 Room Air 09/11 2133 97.3 91 20 149/67 99 Room Air 09/11 1832 96 09/11 1818 Room Air 09/11 1704 98.2 104 20 137/83 97 Room Air Room Air Intake & Output 09/12 0800 09/12 0000 09/11 1600 Intake Total 840 Output Total 600 Balance 240 Intake, IV 600 Intake, Oral 240 Output, Urine 600 Patient 120.202 kg 122.47 kg Weight Weight Reported by Patient Reported by Patient Measurement Method Physical Exam General Appearance: Alert, Oriented X3, Cooperative Skin: No Rashes HEENT: Atraumatic, PERRLA, EOMI Neck: Supple Cardiovascular: Regular Rate, Normal S1, Normal S2 Lungs: Normal Air Movement, Rhochorous sounds at bases Abdomen: Normal Bowel Sounds, Soft, No Tenderness Current Medications: Current Medications Sig/Jaden Start time Last Medication Dose Route Stop Time Status Admin Acetaminophen 650 MG Q6P PRN 09/11 2215 AC PO Albuterol Sulfate 3 ML ONCE ONE 09/11 1830 DC 09/11 INH 09/11 183 1831 Azithromycin 500 MG 1800 09/12 1800 AC Sodium Chloride 250 ML IV Azithromycin 500 MG ONCE ONE 09/11 1830 DC 09/11 Sodium Chloride 250 ML IV 09/11 1929 1928 Ceftriaxone Sodium 1,000 MG 1800 09/12 1800 AC IV Ceftriaxone Sodium 1,000 MG ONCE ONE 09/11 1830 DC 09/11 IV 09/11 1831 1848 Enoxaparin Sodium 40 MG DAILY 09/12 1000 AC SC Ibuprofen 600 MG Q6P PRN 09/11 2215 AC PO Ketorolac 30 MG ONCE ONE 09/11 183 DC Tromethamine IV 09/11 183 Morphine Sulfate 0 .STK-MED ONE 09/11 2301 DC .ROUTE Morphine Sulfate 2 MG Q6-PRN PRN 09/11 2215 DC 09/11 IV 2303 Oxycodone/ 1 TAB Q6P PRN 09/12 0515 AC 09/12 Acetaminophen PO 0523 Oxycodone/ 1 TAB ONCE ONE 09/11 193 DC 09/11 Acetaminophen PO 09/11 1930 1928 Polyethylene Glycol 17 GM DAILY NEEDED PRN 09/11 230 AC PO Senna 374 MG AT BEDTIME NEED.. 09/11 2300 AC PO Sodium Chloride 1,000 ML Q13H 09/12 0110 AC 09/12 IV 09/13 0309 0029 Sodium Chloride 1,000 ML .[id number] 09/11 230 DC 09/11 IV 2359 Sodium Chloride 1,000 ML ONCE ONE 09/11 183 DC 09/11 IV 09/12 0109 1848 Last 24 Hrs of Lab/Pelon Results Last 24 Hrs of Labs/Mics: Laboratory Tests 09/12/16 0621: Anion Gap 7, Estimated GFR > 60, BUN/Creatinine Ratio 12.5, CBC w Diff NO MAN DIFF REQ, RBC 3.77 L, MCV 86.5, MCH 29.0, RDW 13.6, MPV 10.0, Gran % 76.4 H, Lymphocytes % 18.5 L, Monocytes % 4.1, Eosinophils % 0.8, Basophils % 0.2, Absolute Granulocytes 8.1 H, Absolute Lymphocytes 2.0, Absolute Monocytes 0.4, Absolute Eosinophils 0.1, Absolute Basophils 0, PUBS MCHC 33.5 09/12/16 0525: Urine Opiates Screen 704.00, Methadone Screen < 40, Barbiturate Screen < 60, Ur Phencyclidine Scrn < 6.00, Amphetamines Screen < 100, U Benzodiazepines Scrn < 85, Urine Cocaine Screen 71, Urine Cannabis Screen < 5.00, Urine Color STRAW, Urine Clarity CLEAR, Urine pH 6.0, Ur Specific [place] 1.010, Urine Protein NEG, Urine Ketones NEG, Urine Nitrite NEG, Urine Bilirubin NEG, Urine Urobilinogen 0.2, Ur Leukocyte Esterase NEG, Ur Microscopic EXAM NOT REQUIRED, Urine Hemoglobin NEG, Urine Glucose NEG 09/11/161742: Anion Gap 12, Estimated GFR > 60, BUN/Creatinine Ratio 14.4, Glucose 213 H, Hemoglobin A1c Pending, Calcium 9.7, Total Bilirubin 0.5, AST 14 L, ALT 38, Alkaline Phosphatase 70, Troponin I < 0.01, Total Protein 6.5, Albumin 3.9, Globulin 2.6, Albumin/Globulin Ratio 1.5, CBC w Diff MAN DIFF ORDERED, RBC 4.21 L, MCV 86.0, MCH 29.3, RDW 13.8, MPV 10.2, Gran % 84.1 H, Lymphocytes % 11.5 L , Monocytes % 3.8, Eosinophils % 0.1, Basophils % 0.5, Absolute Granulocytes 12.6 H, Segmented Neutrophils 80 H, Band Neutrophils 4, Absolute Lymphocytes 1.7, Lymphocytes 13 L, Monocytes 2, Absolute Monocytes 0.6, Absolute Eosinophils 0, Basophils 1, Absolute Basophils 0.1, Platelet Estimate ADEQUATE, Polychromasia 1+, Hypochromic-Microcytic 1+, Basophilic Stippling 1+, Anisocytosis 1+, PUBS MCHC 34.0, Lyme Disease Antibody Pending Microbiology 09/12 524 URINE ROUT: Legionella Antigen - COMP 09/12 524 URINE ROUT: Streptococcus pneumoniae Antigen (M - COMP 09/11 174 BLOOD: Blood Culture - RECD 09/11 1729 BLOOD: Blood Culture - RECD Assessment/Plan Assessment: Patient is a 46 YO M with PMH significant for multifactorial pneumonia, (10yrs ago), asthma presented to ER 2 days ago with dyspnea, pleuritic chest pain, dry cough, fevers (101.8) got discharged with augmentin and steroid. His 2 sets of blood cultures grew gram positive cocci in pairs/chains - subsequently called back to ER & admitted for bacteremia. ER course VS - afebrile (Tmax 101.8), HR 104, BP 148/90mmHg on room air. Labs are unremarkable except for leukocytosis of 15 (attributable to steroids) today back to 10.5. Glucose of 215 (on steroids), UA and utox are negative, lyme titers are pending Imaging CXR - normal CT chest 1. Mild region of groundglass opacity adjacent to left major fissural fluid; this may reflect mild infectious/inflammatory change. Mild endobronchial opacity is noted in the nearby lingula, suspicious for airway impaction. CT follow-up in approximately 3 months would be helpful to assess for resolution. 2. Left lower lobe 5 mm lung nodule, nonspecific. If the patient is at high risk for malignancy, [address] is recommended. 3. Borderline enlarged subcarinal lymph node along with suggestion of left hilar lymphadenopathy; this may be reactive in nature. Plan Admitted to general medicine floor #Gram positive bacteremia likely sepsis 2/2 CAP: Blood cultures from yesterday growing gram positive cocci in pairs and chains, likely Streptococcus. Most likely source is pneumonia given shortness of breath, cough and pleuritic chest pain. Although CXR on admission was negative, CT Chest with IV Contrast reveals mild region of groundglass opacity in the left lower lobe and lingula which may represent pneumonia. Seen in the ED yesterday and discharged on Augmentin and prednisone for suspected bronchitis. Meets SIRS criteria for sepsis with fever ( though currently afebrile, febrile to Tmax 101.8 in the ED yesterday), leukocytosis (WBC count of 15 and 4% bands) and tachycardia. Hemodynamically stable and satting well on room air. S/p 1 dose of IV ceftriaxone and azithromycin in the ED. * Consider ID consult in the AM. * TRC and nebs. * Continue ceftriaxone 1 g IV daily and azithromycin 500 mg IV daily. * Check Lyme titers given associated arthralgias and myalgias. * Check sputum culture and repeat blood cultures. * Legionella and Strep pneumo urinary antigen - are negative * No need for steroids as patient does not appear to be in asthma exacerbation. #Hyperglycemia: Blood sugar elevated to 213 on admission. Likely secondary to steroids. No history of diabetes. * HbA1c is 6.0. -- steroid related Diet: Regular Pain: Tylenol 650 mg PO Q6H PRN for mild pain (scale 1-3) 600 mg PO Q6H PRN for moderate pain (scale 4-6) 2 mg IV Q6H PRN for severe pain (scale 7-10) DVT PPx: Lovenox and ALPs CODE: FULL Problem List: 1. Gram-positive bacteremia 2. CAP (community acquired pneumonia) 3. Hyperglycemia Pain Ratin Pain Location: chest Pain (pleuretic) Pain Goal: Pain 4 or less Pain Plan: tylenol percocet Tomorrow's Labs & Rationales: NONE
[2016-09-12 08:17] LABS: ABSOLUTE BASOPHIL COUNT 0 /CUMM (0.0-0.2); ABSOLUTE EOSINOPHIL COUNT 0.1 /CUMM (0.0-0.7); ABSOLUTE GRANULOCYTE CT 8.1 /CUMM (1.4-6.5); ABSOLUTE MONOCYTE COUNT 0.4 /CUMM (0.10-0.60); BASOPHIL % 0.2 % (0.0-2.0); EOSINOPHIL % 0.8 % (0-5); GRANULOCYTE % 76.4 % (42.2-75.2); HEMATOCRIT 32.6 % (42-52); MEAN CORPUSCULAR HGB CONC 33.5 G/DL (33.0-37.0); MEAN CORPUSCULAR VOLUME 86.5 FL (80.0-94.0); PLATELET COUNT 154 /CUMM (130-400); RBC DISTRIBUTION WIDTH 13.6 % (11.5-14.5); RED BLOOD CELL CT 3.77 /CUMM (4.70-6.10); WHITE BLOOD CELL COUNT 10.5 /CUMM (4.8-10.8)
--- NOTE | 2016-09-12 08:17 | PN- Student ---
Subjective Subjective: Patient was seen and examined this morning. Patient was admitted yesterday for shortness of breath and for pain that began on Monday that he describes as "tight" and feels that he his whole body is being "squashed." He was not able to sleep well last night due to pain and increased urinary frequency. He also was feeling short of breath and had to use his inhaler 6 times last night. He states that the nebulizer treatment in the ER worked for him. He feels uncomfortable and states that his whole body aches. Pain is mainly from his ribs, left shoulder, and back. Patient states that he had his pain medication switched back to percocet because he thinks it works better and pain post-administration is a 2/10. He also states that when he is talking for awhile he feels like he needs to cough "for the air to get in." Denies nausea, vomiting, diarrhea, abdominal pain, headache. Current Medications Sig/Jaden Start time Last Medication Dose Route Stop Time Status Admin Acetaminophen 650 MG Q6P PRN 09/11 2214 AC PO Albuterol Sulfate 3 ML ONCE ONE 09/11 183 DC 09/11 INH 09/11 183 183 Azithromycin 500 MG 1800 09/12 1800 AC Sodium Chloride 250 ML IV Azithromycin 500 MG ONCE ONE 09/11 183 DC 09/11 Sodium Chloride 250 ML IV 09/11 1928 192 Ceftriaxone Sodium 1,000 MG 1800 09/12 1800 AC IV Ceftriaxone Sodium 1,000 MG ONCE ONE 09/11 1830 DC 09/11 IV 09/11 1831 1848 Enoxaparin Sodium 40 MG DAILY 09/12 1000 AC SC Ibuprofen 600 MG Q6P PRN 09/11 2214 AC PO Ketorolac 30 MG ONCE ONE 09/11 183 DC Tromethamine IV 09/11 183 Morphine Sulfate 0 .STK-MED ONE 09/11 230 DC .ROUTE Morphine Sulfate 2 MG Q6-PRN PRN 09/11 2215 DC 09/11 IV 2303 Oxycodone/ 1 TAB Q6P PRN 09/12 0515 AC 09/12 Acetaminophen PO 0523 Oxycodone/ 1 TAB ONCE ONE 09/11 1930 DC 09/11 Acetaminophen PO 09/11 1930 192 Polyethylene Glycol 17 GM DAILY NEEDED PRN 09/11 2300 AC PO Senna 374 MG AT BEDTIME NEED.. 09/11 2300 AC PO Sodium Chloride 1,000 ML Q13H 09/12 0110 AC 09/12 IV 09/13 0309 0029 Sodium Chloride 1,000 ML .[id number] 09/11 2300 DC 09/11 IV 2359 Sodium Chloride 1,000 ML ONCE ONE 09/11 1830 DC 09/11 IV 09/12 0109 1848 Objective Objective: Physical exam: General: obese, alert and oriented x3. no acute distress Head: NC/AT Lungs: clear to auscultation. no rhonchi, crackles, wheezing Heart: regular rate and rhythm. no murmurs, gallops, rubs Abdomen: normoactive bowel sounds Extremities: no clubbing, no edema, no erythema Lymphatics: no lymphadenopathies Blood culture (09/11/16) Gram stain suggestive of gram + cocci in pairs and chains CXR (09/11/16) Unremarkable chest exam. No major change from earlier study Chest CT (09/11/16) 1. Mild region of groundglass opacity adjacent to left major fissural fluid; this may reflect mild infectious/inflammatory change. Mild endobronchial opacity is noted in the nearby lingula, suspicious for airway impaction. CT follow-up in approximately 3 months would be helpful to assess for resolution. 2. Left lower lobe 5 mm lung nodule, nonspecific. If the patient is at high risk for malignancy, [address] is recommended. 3. Borderline enlarged subcarinal lymph node along with suggestion of left hilar lymphadenopathy; this may be reactive in nature. Vital Signs Date Time Temp Pulse Resp B/P B/P Pulse O2 O2 Flow FiO2 Mean Ox Delivery Rate 09/12 0630 98.5 91 20 148/90 97 Room Air 09/12 0028 98.7 88 20 148/80 98 Room Air 09/11 2303 96.9 95 20 134/80 97 Room Air 09/11 2133 97.3 91 20 149/67 99 Room Air 09/11 1832 96 09/11 1818 Room Air 09/11 1704 98.2 104 20 137/83 97 Room Air Room Air Intake & Output 09/12 1600 09/12 0800 09/12 0000 Intake Total 840 Output Total 600 Balance 240 Intake, IV 600 Intake, Oral 240 Output, Urine 600 Patient 265 lb 270 lb Weight Weight Reported by Patient Reported by Patient Measurement Method Results Results: Laboratory Tests 09/12/16 0621: Anion Gap 7, Estimated GFR > 60, BUN/Creatinine Ratio 12.5, CBC w Diff NO MAN DIFF REQ, RBC 3.77 L, MCV 86.5, MCH 29.0, RDW 13.6, MPV 10.0, Gran % 76.4 H, Lymphocytes % 18.5 L, Monocytes % 4.1, Eosinophils % 0.8, Basophils % 0.2, Absolute Granulocytes 8.1 H, Absolute Lymphocytes 2.0, Absolute Monocytes 0.4, Absolute Eosinophils 0.1, Absolute Basophils 0, PUBS MCHC 33.5 09/12/16 0525: Urine Opiates Screen 704.00, Methadone Screen < 40, Barbiturate Screen < 60, Ur Phencyclidine Scrn < 6.00, Amphetamines Screen < 100, U Benzodiazepines Scrn < 85, Urine Cocaine Screen 71, Urine Cannabis Screen < 5.00, Urine Color STRAW, Urine Clarity CLEAR, Urine pH 6.0, Ur Specific [place] 1.010, Urine Protein NEG, Urine Ketones NEG, Urine Nitrite NEG, Urine Bilirubin NEG, Urine Urobilinogen 0.2, Ur Leukocyte Esterase NEG, Ur Microscopic EXAM NOT REQUIRED, Urine Hemoglobin NEG, Urine Glucose NEG 09/11/16 1743: Anion Gap 12, Estimated GFR > 60, BUN/Creatinine Ratio 14.4, Glucose 213 H, Hemoglobin A1c Pending, Calcium 9.7, Total Bilirubin 0.5, AST 14 L, ALT 38, Alkaline Phosphatase 70, Troponin I < 0.01, Total Protein 6.5, Albumin 3.9, Globulin 2.6, Albumin/Globulin Ratio 1.5, CBC w Diff MAN DIFF ORDERED, RBC 4.21 L, MCV 86.0, MCH 29.3, RDW 13.8, MPV 10.2, Gran % 84.1 H, Lymphocytes % 11.5 L , Monocytes % 3.8, Eosinophils % 0.1, Basophils % 0.5, Absolute Granulocytes 12.6 H, Segmented Neutrophils 80 H, Band Neutrophils 4, Absolute Lymphocytes 1.7, Lymphocytes 13 L, Monocytes 2, Absolute Monocytes 0.6, Absolute Eosinophils 0, Basophils 1, Absolute Basophils 0.1, Platelet Estimate ADEQUATE, Polychromasia 1+, Hypochromic-Microcytic 1+, Basophilic Stippling 1+, Anisocytosis 1+, PUBS MCHC 34.0, Lyme Disease Antibody Pending Microbiology 09/12 524 URINE ROUT: Legionella Antigen - COMP 09/12 524 URINE ROUT: Streptococcus pneumoniae Antigen (M - COMP 09/11 1743 BLOOD: Blood Culture - RECD 09/11 173 BLOOD: Blood Culture - RECD Assessment/Plan Assessment: Assessment and Plan: 46 yo male with PMHx of asthma, obstructive sleep apnea, multifocal pneumonia presented yesterday with shortness of breath, chills, and myalgias. PE unremarkable. Upon admission, patient met SIRS criteria as he was tachycardiac and had leukocytosis. Today, patient is afebrile and hypertensive, with no leukocytosis. Blood cultures grew gram + cocci in pairs and chains. Chest CT reveals mild region of groundglass opacity adjacent to left major fissural fluid , mild endobronchial opacity in the nearby lingula, left lower lobe 5 mm nonspecific lung nodule, borderline enlarged subcarinal lymph node. 1. Gram + bacteremia secondary to community-acquired pneumonia. * Continue Cefriaxone and Azithromycin. * Consult infectious disease. Gram + cocci in pairs and chains can suggest Staph , Strep, or Enterococcus species. Staph aureus bacteremia can be secondary to cardiac devices, recent dental procedures, endocarditis, osteomyelitis or spinal epidural abscess. Symptoms and physical exam do not suggest this species. Empiric therapy includes Vancomycin. Group A Streptococcus bacteremia includes risk factors such as: diabetes, obesity, peripheral vascular disease, malignancy , corticosteroids, and NSAIDs. GAS bacteremia can be treated with penicillin and clindamycin. * Awaiting lyme titer due to symptoms of myalgias and arthralgias. * Bacteremia can be secondary to pneumonia, arthritis, osteomyelitis, soft tissue infection. * Upon discharge, follow-up with PCP or optical worker for 5 mm nodule. According to 2017 Fleischner guidelines, if patient's occupational exposures qualify patient as high-risk, a repeat CT scan is optional in 12 months. 2. Hypertension * Can be secondary to pain, sleep apnea, obesity. * Monitor BP and consider adding an antihypertensive if BP remains elevated. 3. Hyperglycemia * Glucose level upon admission was 213. * Check HbA1c. 4. Asthma * Continue albuterol PRN.
[2016-09-12 14:20] VITALS: BP 140/60
[2016-09-12 14:53] VITALS: BP 120/80
[2016-09-12 22:16] VITALS: BP 164/80
[2016-09-13 06:40] VITALS: BP 136/94
--- NOTE | 2016-09-13 07:22 | PN- Housestaff ---
See Addendum Subjective Follow-up For: Gram positive bacteremia secondary to pneumonia Subjective: I saw and examined the patient today morning He still reports pain with breathing and coughing. Still reports cough with scanty phlegm production. However overall feels better. No fever/chills/ overnight events. Review of Systems Constitutional: Reports: see HPI. Comments: ROS negative except above Objective Last 24 Hrs of Vital Signs/I&O Vital Signs Date Time Temp Pulse Resp B/P B/P Pulse O2 O2 Flow FiO2 Mean Ox Delivery Rate 09/13 0640 97.7 80 18 136/94 97 Room Air 09/12 2216 98.1 88 22 164/80 95 Room Air 09/12 1840 98 Room Air 09/12 1453 98.9 76 20 120/80 98 Room Air 09/12 1420 98.2 100 20 140/60 98 Room Air 09/12 1052 Room Air 09/12 1051 95 Room Air Intake & Output 09/13 0800 09/13 0000 09/12 1600 Intake Total 780 Output Total Balance 780 Intake, IV 300 Intake, Oral 480 Physical Exam General Appearance: Alert, Oriented X3, Cooperative, No Acute Distress Skin: No Rashes, No Breakdown HEENT: Atraumatic, PERRLA, EOMI Neck: Supple Cardiovascular: Normal S1, Normal S2 Lungs: Normal Air Movement, decreased breath sounds at bases Abdomen: Normal Bowel Sounds, Soft, No Tenderness Neurological: Normal Speech, Strength at 5/5 X4 Ext, Normal Tone, Sensation Intact Extremities: No Clubbing, No Cyanosis Vascular: Normal Pulses, Pulses Symmetrical Current Medications: Current Medications Sig/Jaden Start time Last Medication Dose Route Stop Time Status Admin Acetaminophen 650 MG Q6P PRN 09/11 2215 AC PO Albuterol Sulfate 3 ML BID 09/12 220 AC 09/13 INH 0906 Azithromycin 500 MG 1800 09/12 1800 AC 09/13 Sodium Chloride 250 ML IV 1746 Ceftriaxone Sodium 1,000 MG 1800 09/12 1800 AC 09/13 IV 1746 Enoxaparin Sodium 40 MG DAILY 09/12 1000 AC 09/13 SC 0943 Guaifenesin 600 MG Q12 09/12 2200 AC 09/13 PO 0943 Ibuprofen 600 MG Q6P PRN 09/11 2215 AC PO Oxycodone/ 1 TAB Q4P PRN 09/13 1115 AC 06/20 Acetaminophen PO 1540 Oxycodone/ 1 TAB Q6P PRN 09/12 0515 DC 09/13 Acetaminophen PO 0623 Polyethylene Glycol 17 GM DAILY NEEDED PRN 09/11 2300 AC PO Senna 374 MG AT BEDTIME NEED.. 09/11 2300 AC PO Assessment/Plan Assessment: Patient is a 46 YO M with PMH significant for multifactorial pneumonia, (10yrs ago), asthma presented to ER 2 days ago with dyspnea, pleuritic chest pain, dry cough, fevers (101.8) got discharged with augmentin and steroid. His 2 sets of blood cultures grew gram positive cocci in pairs/chains - subsequently called back to ER & admitted for bacteremia. ER course VS - afebrile (Tmax 101.8), HR 104, BP 148/90mmHg on room air. Labs are unremarkable except for leukocytosis of 15 (attributable to steroids) today back to 10.5. Glucose of 215 (on steroids), UA and utox are negative, lyme titers are pending Imaging CXR - normal CT chest 1. Mild region of groundglass opacity adjacent to left major fissural fluid; this may reflect mild infectious/inflammatory change. Mild endobronchial opacity is noted in the nearby lingula, suspicious for airway impaction. CT follow-up in approximately 3 months would be helpful to assess for resolution. 2. Left lower lobe 5 mm lung nodule, nonspecific. If the patient is at high risk for malignancy, [address] is recommended. 3. Borderline enlarged subcarinal lymph node along with suggestion of left hilar lymphadenopathy; this may be reactive in nature. Plan Admitted to general medicine floor #Gram positive bacteremia likely sepsis 2/2 CAP: Blood cultures from yesterday growing gram positive cocci in pairs and chains, likely Streptococcus. Most likely source is pneumonia given shortness of breath, cough and pleuritic chest pain. Although CXR on admission was negative, CT Chest with IV Contrast reveals mild region of groundglass opacity in the left lower lobe and lingula which may represent pneumonia. Seen in the ED yesterday and discharged on Augmentin and prednisone for suspected bronchitis. Meets SIRS criteria for sepsis with fever ( though currently afebrile, febrile to Tmax 101.8 in the ED yesterday), leukocytosis (WBC count of 15 and 4% bands) and tachycardia. Hemodynamically stable and satting well on room air. S/p 1 dose of IV ceftriaxone and azithromycin in the ED. * Consider ID consult in the AM. * TRC and nebs. * Continue ceftriaxone 1 g IV daily and azithromycin 500 mg IV daily. * Check Lyme titers given associated arthralgias and myalgias. * Check sputum culture and repeat blood cultures - NGTD * May transition to oral antibiotics tomorrow. #Hyperglycemia: Blood sugar elevated to 213 on admission. No history of diabetes. * HbA1c is 6.0. -- steroid related Diet: Regular Pain: Tylenol 650 mg PO Q6H PRN for mild pain (scale 1-3) 600 mg PO Q6H PRN for moderate pain (scale 4-6) 2 mg IV Q6H PRN for severe pain (scale 7-10) DVT PPx: Lovenox and ALPs CODE: FULL Problem List: 1. Gram-positive bacteremia 2. Positive blood cultures 3. Fever and chills 4. Hyperglycemia Pain Ratin Pain Location: Chest pain (pleuritic) Pain Goal: Pain 4 or less Pain Plan: Tylenol Percocet Tomorrow's Labs & Rationales: NONE
[2016-09-13 14:51] VITALS: BP 124/88
--- NOTE | 2016-09-13 18:52 | Patient Discharge Instructions ---
Discharge Instructions General Discharge Information You were seen/treated for: Strep bacteremia Lung infection Special Instructions: Please follow up with your PCP Dr. Blue in a week Please complete the 10day course of augmentin (amoxicillin/clavulanate) given on september 11 from ER. Please take percocet as needed for pain Diet Continue normal diet: Yes Activity Full Activity/No Limits: Yes Acute Coronary Syndrome Inclusion Criteria At DC or during hospital stay patient has or had the following: ACS DIAGNOSIS No Discharge Core Measures Meds if any: Prescribed or Continued at Discharge Meds if any: NOT Prescribed or Continued at Discharge Congestive Heart Failure Inclusion Criteria At DC or during hospital stay patient has or had the following: CHF DIAGNOSIS No Discharge Core Measures Meds if any: Prescribed or Continued at Discharge Meds if any: NOT Prescribed or Continued at Discharge Cerebrovascular accident Inclusion Criteria At DC or during hospital stay patient has or had the following: CVA/TIA Diagnosis No Discharge Core Measures Meds if any: Prescribed or Continued at Discharge Meds if any: NOT Prescribed or Continued at Discharge Venous thromboembolism Inclusion Criteria VTE Diagnosis No VTE Type NONE VTE Confirmed by (Test) NONE Discharge Core Measures - Per Current guidelines, there needs to be overlap - treatment for the first 5 days of Warfarin therapy. - If discharged on Warfarin prior to 5 days of - overlap therapy, the patient will need to be - assessed for post discharge needs including - *Post discharge parental anticoagulation - *Warfarin and/or parental anticoagulation education - *Follow up date to check INR post discharge At least 5 days overlap therapy as Inpatient No Meds if any: Prescribed or Continued at Discharge Note: Overlap Therapy is Warfarin and Anticoagulant Meds if any: NOT Prescribed or Continued at Discharge
[2016-09-13 22:26] VITALS: BP 130/70
[2016-09-14 06:36] VITALS: BP 130/78
--- NOTE | 2016-09-14 07:18 | PN- Housestaff ---
THOMAS GOOD,ANGIE 09/14/16 0718: Subjective Follow-up For: Strep pneumo bacteremia presumably from pneumonia Subjective: I saw and examined the patient today morning He still had some cough, congestion with chest pain while breathing, however overall condition appears much better. He is able to walk around and tolerate per oral intake well. Review of Systems Constitutional: Reports: see HPI. Comments: Otherwise negative except above Objective Last 24 Hrs of Vital Signs/I&O Vital Signs Date Time Temp Pulse Resp B/P B/P Pulse O2 O2 Flow FiO2 Mean Ox Delivery Rate 09/14 0636 97.9 81 18 130/78 96 Room Air 09/13 2226 98.5 90 18 130/70 95 Room Air 09/13 1930 Room Air 09/13 1905 97 Room Air Room Air 09/13 1451 97.1 93 18 124/88 95 Room Air 09/13 0907 97 Room Air Room Air 09/13 0800 Room Air Intake & Output 09/14 0800 09/14 0000 09/13 1600 Intake Total 900 480 Output Total Balance 900 480 Intake, IV 250 Intake, Oral 650 480 Number 0 Bowel Movements Physical Exam General Appearance: Alert, Oriented X3, Cooperative, No Acute Distress Skin: No Rashes, No Breakdown HEENT: Atraumatic, PERRLA, EOMI Neck: Supple Cardiovascular: Normal S1, Normal S2, No Murmurs Lungs: Clear to Auscultation, Normal Air Movement Abdomen: Normal Bowel Sounds, Soft, No Tenderness Neurological: Normal Speech, Strength at 5/5 X4 Ext, Normal Tone, Sensation Intact, Cranial Nerves 3-12 NL Extremities: No Clubbing, No Cyanosis Vascular: Normal Pulses, Pulses Symmetrical Current Medications: Current Medications Sig/Jaden Start time Last Medication Dose Route Stop Time Status Admin Acetaminophen 650 MG Q6P PRN 09/115 AC PO Albuterol Sulfate 3 ML BID 09/12 2199 AC 09/13 INH 1902 Azithromycin 500 MG 1800 09/12 1800 AC 09/13 Sodium Chloride 250 ML IV 174 Ceftriaxone Sodium 1,000 MG 1800 09/12 1800 AC 09/13 IV 1746 Enoxaparin Sodium 40 MG DAILY 09/12 1000 AC 09/13 SC 0943 Guaifenesin 600 MG Q12 09/12 2200 AC 09/13 PO 2134 Ibuprofen 600 MG Q6P PRN 09/11 2215 AC PO Oxycodone/ 1 TAB Q4P PRN 09/13 1115 AC 09/14 Acetaminophen PO 0523 Oxycodone/ 1 TAB Q6P PRN 09/12 0515 DC 09/13 Acetaminophen PO 0623 Polyethylene Glycol 17 GM DAILY NEEDED PRN 09/11 2300 AC PO Senna 374 MG AT BEDTIME NEED.. 09/11 2300 AC PO Last 24 Hrs of Lab/Pelon Results Last 24 Hrs of Labs/Mics: Laboratory Tests 09/14/16 0610: CBC w Diff NO MAN DIFF REQ, RBC 4.07 L, MCV 84.6, MCH 29.1, RDW 13.4, MPV 9.3, Gran % 66.7, Lymphocytes % 23.5, Monocytes % 5.9, Eosinophils % 3.3, Basophils % 0.6, Absolute Granulocytes 5.8, Absolute Lymphocytes 2.1, Absolute Monocytes 0.5 , Absolute Eosinophils 0.3, Absolute Basophils 0.1, PUBS MCHC 34.4 Assessment/Plan Assessment: Patient is a 46 YO M with PMH significant for multifactorial pneumonia, (10yrs ago), asthma presented to ER 2 days ago with dyspnea, pleuritic chest pain, dry cough, fevers (101.8) got discharged with augmentin and steroid. His 2 sets of blood cultures grew gram positive cocci in pairs/chains - subsequently called back to ER & admitted for bacteremia. ER course VS - afebrile (Tmax 101.8), HR 104, BP 148/90mmHg on room air. Labs are unremarkable except for leukocytosis of 15 (attributable to steroids) today back to 10.5. Glucose of 215 (on steroids), UA and utox are negative, lyme titers are pending Imaging CXR - normal CT chest 1. Mild region of groundglass opacity adjacent to left major fissural fluid; this may reflect mild infectious/inflammatory change. Mild endobronchial opacity is noted in the nearby lingula, suspicious for airway impaction. CT follow-up in approximately 3 months would be helpful to assess for resolution. 2. Left lower lobe 5 mm lung nodule, nonspecific. If the patient is at high risk for malignancy, [address] is recommended. 3. Borderline enlarged subcarinal lymph node along with suggestion of left hilar lymphadenopathy; this may be reactive in nature. Plan Admitted to general medicine floor Strep pneumo bacteremia presumably secondary to pneumonia: Blood cultures from growing Streptococcus pneumonia. Most likely source is pneumonia given shortness of breath, cough and pleuritic chest pain. Although CXR on admission was negative, CT Chest with IV Contrast reveals mild region of groundglass opacity in the left lower lobe and lingula which may represent pneumonia. Seen in the ED yesterday and discharged on Augmentin and prednisone for suspected bronchitis. Meets SIRS criteria for sepsis with fever (though currently afebrile , febrile to Tmax 101.8 in the ED), leukocytosis (WBC count of 15 and 4% bands) and tachycardia. Hemodynamically stable and satting well on room air. S/p 1 dose of IV ceftriaxone and azithromycin in the ED. * TRC and nebs. * Switched to oral Augmentin for total course of 14 days. * Check sputum culture and repeat blood cultures - NGTD #Hyperglycemia: Blood sugar elevated to 213 on admission. No history of diabetes. * HbA1c is 6.0. -- steroid related Diet: Regular Pain: Tylenol 650 mg PO Q6H PRN for mild pain (scale 1-3) Percocet 5/325 PO Q6H PRN for moderate pain (scale 4-6) DVT PPx: Lovenox and ALPs CODE: FULL Problem List: 1. Positive blood cultures 2. Gram-positive bacteremia 3. CAP (community acquired pneumonia) 4. Hyperglycemia Pain Ratin Pain Location: Substernal and chest region, pleuritic Pain Goal: Pain 4 or less Pain Plan: Percocet and Tylenol Tomorrow's Labs & Rationales: None JUAN CARLOS LI MD 09/14/16 1121: Attending MD Review Statement Attending Statement Attending MD Statement: examined this patient, discuss w/resident/PA/OUTDOOR ADVENTURE GUIDES, agreed w/resident/PA/OUTDOOR ADVENTURE GUIDES, reviewed EMR data (avail) Attending Assessment/Plan: 46M PMH asthma, HTN, obesity admitted with sepsis and bacteremia with GPC in blood, with fever, chills, productive cough, with LLL pneumonia. Patient appears ill today and just asked to sleep. He is awake and alert but tired, and complains of diffuse myalgia, weakness, and cough. Patient is much improved. He is awake and alert and feels well. Afebrile overnight. Cough is present but improving, still minimal sputum, chest pain is resolved. Blood culture growing streptococcal pneumonia. 1. LLL Streptococcal pneumonia 2. Sepsis 3. Invasive streptoccocal bacteremia Plan - Stable for discharge home - Augmentin for 14 day total - Continue home medications - Follow up with PCP after discharge
[2016-09-14 08:11] LABS: ABSOLUTE BASOPHIL COUNT 0.1 /CUMM (0.0-0.2); ABSOLUTE EOSINOPHIL COUNT 0.3 /CUMM (0.0-0.7); ABSOLUTE GRANULOCYTE CT 5.8 /CUMM (1.4-6.5); ABSOLUTE LYMPH COUNT 2.1 /CUMM (1.2-3.4); ABSOLUTE MONOCYTE COUNT 0.5 /CUMM (0.10-0.60); BASOPHIL % 0.6 % (0.0-2.0); EOSINOPHIL % 3.3 % (0-5); GRANULOCYTE % 66.7 % (42.2-75.2); HEMATOCRIT 34.4 % (42-52); MEAN CORPUSCULAR HGB 29.1 PG (27.0-31.0); MEAN CORPUSCULAR HGB CONC 34.4 G/DL (33.0-37.0); MEAN CORPUSCULAR VOLUME 84.6 FL (80.0-94.0); MEAN PLATELET VOLUME 9.3 FL (7.4-10.4); PLATELET COUNT 204 /CUMM (130-400); RBC DISTRIBUTION WIDTH 13.4 % (11.5-14.5); RED BLOOD CELL CT 4.07 /CUMM (4.70-6.10); WHITE BLOOD CELL COUNT 8.8 /CUMM (4.8-10.8)
--- NOTE | 2016-09-14 11:24 | Discharge Summary ---
Visit Information Visit Dates Admission Date: 09/11/16 Discharge Date: 09/14/16 Hospital Course Course Attending Physician: EDWAR BAEZ MDHugh Primary Care Physician: SHAYY HASSANTOMMY [facility] Course: Patient is a 46 YO M with PMH significant for multifactorial pneumonia, (10yrs ago), asthma presented to ER 2 days ago with dyspnea, pleuritic chest pain, dry cough, fevers (101.8) got discharged with augmentin and steroid. His 2 sets of blood cultures grew Strep pneumo - subsequently called back to ER & admitted for bacteremia. ER course VS - afebrile (Tmax 101.8), HR 104, BP 148/90mmHg on room air. Labs are unremarkable except for leukocytosis of 15 (attributable to steroids) today back to 10.5. Glucose of 215 (on steroids), UA and utox are negative, lyme titers are pending Imaging CXR - normal CT chest 1. Mild region of groundglass opacity adjacent to left major fissural fluid; this may reflect mild infectious/inflammatory change. Mild endobronchial opacity is noted in the nearby lingula, suspicious for airway impaction. CT follow-up in approximately 3 months would be helpful to assess for resolution. 2. Left lower lobe 5 mm lung nodule, nonspecific. If the patient is at high risk for malignancy, [address] is recommended. 3. Borderline enlarged subcarinal lymph node along with suggestion of left hilar lymphadenopathy; this may be reactive in nature. Plan Admitted to general medicine floor Strep pneumo bacteremia presumably secondary to pneumonia: Blood cultures from 10/11/16 growing Streptococcus pneumonia. Most likely source is pneumonia given shortness of breath, cough and pleuritic chest pain. Although CXR on admission was negative, CT Chest with IV Contrast reveals mild region of groundglass opacity in the left lower lobe and lingula which may represent pneumonia. Seen in the ED discharged on Augmentin and prednisone for suspected bronchitis. Meets SIRS criteria for sepsis with fever (though currently afebrile, febrile to Tmax 101.8 in the ED), leukocytosis (WBC count of 15 and 4% bands) and tachycardia. S /p 1 dose of IV ceftriaxone and azithromycin in the ED, admitted to general medicine floor He received 2 day course of IV antibiotics (ceftriaxone and gentamicin). Strep pneumo cultures were pansensitive, so switched back to Augmentin for a total course of 14 days. As patient had Augmentin at home ( given in ER on September 11) he was asked to continue the same. He also reports that he had an episodes of Percocet at home. During his hospital stay he received nebulization therapy, his sputum and blood cultures remained negative #Hyperglycemia: Blood sugar elevated to 213 on admission. No history of diabetes. * HbA1c is 6.0. -- steroid related Diet: Regular Pain: Tylenol 650 mg PO Q6H PRN for mild pain (scale 1-3) Percocet 5/325 PO Q6H PRN for moderate pain (scale 4-6) DVT PPx: Lovenox and ALPs CODE: FULL Complications: none Allergies: Coded Allergies: NO KNOWN ALLERGIES (11/18/10) Significant Procedures: none Pertinent Lab Results: Labs are unremarkable except for leukocytosis of 15 (attributable to steroids) today back to 10.5. Glucose of 215 (on steroids), UA and utox are negative, lyme titers are pending Imaging CXR - normal CT chest 1. Mild region of groundglass opacity adjacent to left major fissural fluid; this may reflect mild infectious/inflammatory change. Mild endobronchial opacity is noted in the nearby lingula, suspicious for airway impaction. CT follow-up in approximately 3 months would be helpful to assess for resolution. 2. Left lower lobe 5 mm lung nodule, nonspecific. If the patient is at high risk for malignancy, [address] is recommended. 3. Borderline enlarged subcarinal lymph node along with suggestion of left hilar lymphadenopathy; this may be reactive in nature. Disposition Summary Disposition Principal Diagnosis: Strep Pneumo bacteremia presumably from the pneumonia/lung infection Additional Diagnosis: Hyperglycemia from recent steroid medication Discharge Disposition: home or self care Discharge Instructions General Discharge Information Code Status: Full Code Patient's Diet: REGULAR DIET Patient's Activity: ACTIVITY TOLERATED Follow-Up Instructions/Appts: PLEASE FOLLOW UP WITH YOUR PCP (Dr. Almanza) in a week Please take Augemntin - prescribed form ER on 09/11 for the following 10days. Please follow up with Left lower lobe 5 mm lung nodule, nonspecific found on CT scan Medications at Discharge Discharge Medications: Stop taking the following medications: Prednisone (Prednisone) 20 MG TABLET ORAL TWICE DAILY Qty = 10 Continue taking these medications: Albuterol Sulfate (Ventolin Hfa) 90 MCG HFA.AER.AD 2 Puff Inhale through mouth EVERY 4-6 HOURS NEEDED as needed for ALLERGIC WHEEZING Qty = 18 Comments: NOT GIVEN IN HOSPITAL Amoxicillin/Potassium Clav (Augmentin 875-125 Tablet) 875 MG-125 MG TABLET 1 Tablet ORAL TWICE DAILY Qty = 20 Comments: NOT GIVEN IN HOSPITAL Oxycodone HCl/Acetaminophen (Percocet 5-325 MG Tablet) 5 MG-325 MG TABLET 1 Tablet ORAL 4 TIMES A DAY as needed for severe pain Qty = 20 Comments: Last Taken: 09/14/16 Time: 9AM Copies To: TOMMY LUCAS APRN Attending Review Statement Documenting Attending: JUAN CARLOS LI MD
== END 2016-09-14 12:34 | DRG 871 ==
LOC: ERH 16:59 → 2NA 19:44 → ERHI 19:44 → 2NA 19:44 → ENRESERV 23:53 → 2NA 09-12 00:27 → ENPENDDIS 09-14 11:37 → 2NA 09-14 12:34
PROVIDERS: Emergency Medicine; Internal Medicine; Preventive Medicine Public Health & General Preventive Medicine; ADMIT Student in an Organized Health Care Education/Training Program
DX: A40.9 Streptococcal sepsis, unspecified (principal); J18.9 Pneumonia, unspecified organism; E66.01 Morbid (severe) obesity due to excess calories; J45.909 Unspecified asthma, uncomplicated; G47.33 Obstructive sleep apnea (adult) (pediatric); T38.0X5A Adverse effect of glucocorticoids and synthetic analogues, initial encounter; R73.9 Hyperglycemia, unspecified; Z68.35 Body mass index [BMI] 35.0-35.9, adult; R91.1 Solitary pulmonary nodule; K21.9 Gastro-esophageal reflux disease without esophagitis
CPT/HCPCS: 2NASP; 86618; ERO; 80307; 81003; 82436; 87040; 87449; 87450; 93005; 93010; J0456; J0696; J1650; J7040